=== PATIENT | female | born 1970 | race Caucasian/White ===

== ENCOUNTER 2023-03-19 16:04 | Emergency (ER) | payer SELFPAY ==
[2023-03-19 16:15] VITALS: BP 145/69; PULSE 101; RESP 18; TEMP 37.1; O2SAT 98
--- NOTE | 2023-03-19 17:10 | ED.GENADULT ---
HPI - General Adult General Chief complaint: Allergic Reaction Stated complaint: Allergic Reaction/Ears/Face Time Seen by Provider: 03/19/23 17:10 Source: patient, RN notes reviewed and old records reviewed Mode of arrival: ambulatory Limitations: no limitations History of Present Illness HPI narrative: 52-year-old female accompanied by 2 family members with complaints of dying her hair purple and had either chemical burn or allergic reaction to the dye. She has noted rash on the back of her neck on her head and on her face and ears for past 1 week. Patient has been taking Benadryl and applying Vaseline into the rash areas and taking cool showers. Patient has had reaction to the same purple dye in the past. Patient denies any difficulty breathing or swallowing. Patient has excoriated skin area on her scalp and back of neck and to her ears states areas are burning and itching. MD complaint: rash Onset (ago): week(s) (1) Location: head, face and neck Severity scale (1-10): 10 Quality: burning and other (itching and irritated ) Pain Consistency: constant Treatments prior to arrival: other (Benadryl, vaseline, cool showers) Related Data Allergies Allergy/AdvReac Type Severity Reaction Status Date / Time No Known Allergies Allergy Verified 03/19/23 16:48 Review of Systems Review of Systems: CONSTITUTIONAL: Denies fever, chills, or sweats. EYES: Denies visual changes, redness, or discharge. ENT: Denies rhinorrhea, congestion, sore throat, or otalgia. CARDIOVASCULAR: Denies chest pain, palpitations, or edema. RESPIRATORY: Denies cough or dyspnea. GASTROINTESTINAL: Denies abdominal pain, nausea, vomiting, or diarrhea. GENITOURINARY: Denies dysuria or hematuria. SKIN: Reports rash or itching.excoriated skin on scalp and neck and on ears with rash also on areas of face. MUSCULOSKELETAL: Denies back pain, joint pain, or myalgia. NEUROLOGIC: Denies headache, numbness, or weakness. PSYCHIATRIC: Denies anxiety or depression. All systems reviewed & are unremarkable except as noted in HPI and below [facility] Social History Social History (Updated 03/20/23 @ 20:25 by Ewelina Rossi NP) Smoking status: Current every day smoker Tobacco type: cigarettes and e-cigarettes/vaping Alcohol intake: unknown Substance use: unknown Living arrangements: with family Gender identity (if verbalized by the patient): Female Comments At time of signature, agree with nursing past medical, surgical, social and family history. There is no relevant family history pertinent to the presenting complaint Exam Narrative: GENERAL: Well-appearing, well-nourished, and in some acute distress. HEAD: Normocephalic, atraumatic. EYES: PERRLA and EOMI. ENT: Nares clear, no rhinorrhea or epistaxis. Mucous membranes moist.TM 's normal throat pink with no swelling NECK: Supple. no lymphadenopathy CHEST: Clear to auscultation. No respiratory distress. SAO2 98% on room air HEART: Regular rate and rhythm. No murmur heard. Normal peripheral pulses. ABDOMEN: Soft, nontender, nondistended, normal active bowel sounds. EXTREMITIES: Normal range of motion. No edema. SKIN: Warm, dry, excoriated skin areas to posterior neck and scalp and to bilateral ear, some areas on face, is itchy, burning and irritated. NEURO: No focal deficits. Alert and oriented x3. Course Course Emergency Course: Patient is aware of diagnosis, understands and agrees to treatment plan.? Anticipatory guidance given.? Patient agrees to follow-up as directed and is aware of reasons to seek care at the emergency department. Portions of this record may have been created with voice recognition software Level of Care: Express Care Visit Vital Signs Vital signs: Vital Signs Temperature 37.1 C 03/19/23 16:15 Pulse Rate 101 H 03/19/23 16:15 Respiratory Rate 18 03/19/23 16:15 Blood Pressure 145/69 H 03/19/23 16:15 Pulse Oximetry 98 03/19/23 16:15 Oxygen Delivery Room Air
== END 2023-03-19 17:24 | disposition home or self-care (01) ==
PROVIDERS: Emergency Provider Registered Nurse
DX: T65.6X1A Toxic effect of paints and dyes, not elsewhere classified, accidental (unintentional), initial encounter (principal); L24.5 Irritant contact dermatitis due to other chemical products; F17.210 Nicotine dependence, cigarettes, uncomplicated
CPT/HCPCS: 99213; G0463